=== PATIENT | female | born 1985 | race Caucasian/White ===

== ENCOUNTER 2017-07-27 05:31 | Emergency (ER) | payer BC ==
[~2017-07-27 05:31] MED LIST: DEXT15TA PO; FLUT1SPR9; PROT40TA PO; ZOFR4TAB3 PO
--- NOTE | 2017-07-27 07:04 | PD ---
HPI Chief Complaint Contractions Travel History International Travel<30 Days: No Contact w/Intl Traveler<30Days: No Known Affected Area: No History of Present Illness HPI 32y/o , IUP at 39.4 care complicated by her history of being a "[place] baby" with DNA mutations, bone spurs, narcolepsy, scoliosis The patient reports complaining of the onset of painful contractions at 3am. She reports these have been about every 4-5 minutes but have decreased in frequency and increased in intensity. There are no aggravating or alleviating factors and no attempted treatments. She denies any LOF or VB. She reports good FM. She has no other OB complaints at this time. Weeks Gestation: 39 Para: 0 : 1 History Past Medical History Narrative Medical [place] baby Narcolepsy Scoliosis DNA mutations Bone spurs Obstetric History Obstetric History Denies STDs or abnormal PAPs Past Surgical History Narrative Surgical Rhinoplasty for deviated septum Ovarian cystectomy Family History Narrative Family History HTN Social History Alcohol Use: No Tobacco Use: No Substance Abuse: No Allergies-Medications (Allergen,Severity, Reaction): Coded Allergies: fluoxetine (Unverified Allergy, Severe, 10/29/16) SEIZURE tramadol (Unverified Allergy, Unknown, 10/29/16) SEIZURE *MDRO Multi-Drug Resistant Organism (Verified Adverse Reaction, Unknown, 02/14/15) ESBL (urine) 01/2015 Home Meds Active Scripts Fluticasone Propionate (Nasal) (Flonase Allergy Relief Ch) 50 Mcg/Act Spr, 1 APPLIC NA BID, #1 Prov:Nelly Cho MD 03/07/15 Ondansetron (Zofran ODT) 4 Mg Tab, 4 MG PO Q4-6H for Nausea for 10 Days, TAB 0 Refills Prov:Elieser Elmore MD 02/15/15 Pantoprazole Sodium (Protonix) 40 Mg Tabdr, 40 MG PO DAILY for abdominal pain for 30 Days, TAB 1 Refill Prov:Elieser Elmore MD 02/15/15 Reported Medications Adderall 15 mg (Adderall 15 mg) 15 Mg Tab, 15 MG PO TID, TAB 03/07/15 Review of Systems Except as stated in HPI: all other systems reviewed are Neg Physical Exam Narrative GENERAL: Well-nourished, well-developed patient. SKIN: Warm and dry. HEAD: Normocephalic and atraumatic. EYES: No scleral icterus. No injection or drainage. ENT: No nasal drainage noted. Mucous membranes pink. Airway patent. NECK: Supple, trachea midline. No JVD. CARDIOVASCULAR: Regular rate and rhythm without murmurs, gallops, or rubs. RESPIRATORY: Breath sounds equal bilaterally. No accessory muscle use. BREASTS: deferred ABDOMEN/GI: Abdomen soft, non-tender, bowel sounds present, no rebound, no guarding Gravid GENITOURINARY: External Genitalia: intact and normal in appearance, Normal BUS. Physiologic discharge, no cervical or vaginal masses noted, grossly normal rugae. SVE 1/ thick/high and unchanged in 1h. FHT's: heart tones are in the 120s with moderate intermediate card tender variability, good accelerations, and no decelerations noted. This is a category 1 heart rate tracing and reactive NST. EXTREMITIES: No cyanosis or edema. BACK: Nontender without obvious deformity. NEUROLOGICAL: Awake and alert. Motor and sensory grossly within normal limits. Normal speech. Psychiatric: grossly normal memory, affect Musculoskeletal: grossly normal ROM, gait, muscle strength MDM Plan Assessment/Plan: 1. IUP at 39.4 2. No evidence of active labor, may be prodromal labor. Cervical examination unchanged over observation period and patient does not appear significantly uncomfortable. Strict labor precautions given. Discussed with Dr. Baird who was in agreement with discharge home. 3. [place] baby with DNA mutations 4. wellbeing: reassuring testing with reactive NST and category 1 heart rate tracing. [facility] daily 5. Scoliosis 6. Narcolepsy 7. Bone spurs 8. F/U with primary OB in 2-3d or as scheduled, sooner if needed Diagnosis Diagnosis: Primary Impression: 39 weeks gestation of Additional Impression: False labor at or after 37 completed weeks of gestation Disposition: 01 DISCHARGE HOME Condition: Kiana Cardona MD July 27, 2017 07:04
== END 2017-07-27 07:31 | disposition home or self-care (01) ==
LOC: HOBED 05:31
DX: O47.1 False labor at or after 37 completed weeks of gestation (principal); Z3A.39 39 weeks gestation of pregnancy
CPT/HCPCS: 59025

== ENCOUNTER 2017-08-01 11:05 | Emergency (ER) | payer BC ==
--- NOTE | 2017-08-01 11:58 | PD ---
HPI Chief Complaint contractions Date Seen: August 01, 2017 Time Seen: 11:55 Travel History International Travel<30 Days: No Contact w/Intl Traveler<30Days: No Known Affected Area: No History of Present Illness HPI 32-year-old who is at 40 weeks 2 days comes in due to loss of a mucous plug and some mild contractions that have since resolved. Patient is due to come in at 5 PM tonight for ripening treatment of her cervix before induction. Patient denies any vaginal discharge or bleeding and states she has had normal movement. The last cervical check was 1 cm. Weeks Gestation: 40 Para: 0 : 1 History Past Medical History Medical History: Denies Significant Hx Past Surgical History Surgical History: No Previous Surgery Family History Family History: Negative Social History Alcohol Use: No Tobacco Use: No Substance Abuse: No Allergies-Medications (Allergen,Severity, Reaction): Coded Allergies: fluoxetine (Unverified Allergy, Severe, 10/29/16) SEIZURE tramadol (Unverified Allergy, Unknown, 10/29/16) SEIZURE *MDRO Multi-Drug Resistant Organism (Verified Adverse Reaction, Unknown, 02/14/15) ESBL (urine) 01/2015 Home Meds Active Scripts Fluticasone Propionate (Nasal) (Flonase Allergy Relief Ch) 50 Mcg/Act Spr, 1 APPLIC NA BID, #1 Prov:Nelly Cho MD 03/07/15 Ondansetron (Zofran ODT) 4 Mg Tab, 4 MG PO Q4-6H for Nausea for 10 Days, TAB 0 Refills Prov:Elieser Elmore MD 02/15/15 Pantoprazole Sodium (Protonix) 40 Mg Tabdr, 40 MG PO DAILY for abdominal pain for 30 Days, TAB 1 Refill Prov:Elieser Elmore MD 02/15/15 Reported Medications Adderall 15 mg (Adderall 15 mg) 15 Mg Tab, 15 MG PO TID, TAB 03/07/15 Review of Systems Except as stated in HPI: all other systems reviewed are Neg Physical Exam Narrative GENERAL: Well-nourished, well-developed patient. SKIN: Warm and dry. HEAD: Normocephalic and atraumatic. EYES: No scleral icterus. No injection or drainage. ENT: No nasal drainage noted. Mucous membranes pink. Airway patent. NECK: Supple, trachea midline. No JVD. CARDIOVASCULAR: Regular rate and rhythm without murmurs, gallops, or rubs. RESPIRATORY: Breath sounds equal bilaterally. No accessory muscle use. ABDOMEN/GI: Abdomen soft, non-tender, bowel sounds present, no rebound, no guarding Gravid to [-39] weeks size Fundal Height: [-] GENITOURINARY: External Genitalia: intact and normal in appearance BUS glands: [Normal-] Cervix: [-1] posterior Dilatation: [-] 1 Effacement: [-] 20 Station: [-] High Presentation: [-] Vertex Membranes: [intact or ruptured] intact Uterine Contractions: [-] Rare, patient has had one contractions since admission FHT's: Category: [-] 1 Baseline: [-] 140 Reactive: [-] Moderate moderate Variability: [-] Moderate Decels: [-] Absent EXTREMITIES: No cyanosis or edema. BACK: Nontender without obvious deformity. No CVA tenderness. NEUROLOGICAL: Awake and alert. Motor and sensory grossly within normal limits. Five out of 5 muscle strength in all muscle groups. Normal speech. [facility] Medical Record Reviewed: Yes Plan 32-year-old at 40 weeks gestation not labor at this time. Due to a crunch on room as we cannot keep her at this time as her induction will not occur until 5 to 6:00 tonight. Patient and her partner have no issue with this and will return home gather things and eat dinner prior to her arrival at 5:55 PM tonight Diagnosis Diagnosis: Primary Impression: 40 weeks gestation of Additional Impression: False labor after 37 completed weeks of gestation Disposition: 01 DISCHARGE HOME Ayanna Arita MD August 01, 2017 11:58
== END 2017-08-01 12:11 | disposition home or self-care (01) ==
LOC: HOBED 11:05
DX: O47.1 False labor at or after 37 completed weeks of gestation (principal); Z3A.40 40 weeks gestation of pregnancy; Z88.8 Allergy status to other drugs, medicaments and biological substances; Z79.899 Other long term (current) drug therapy
CPT/HCPCS: 59025

== ENCOUNTER 2017-08-01 17:03 | Inpatient (IN) | payer BC ==
[~2017-08-01] VITALS: Ht 170.2 cm; Wt 93.0 kg
--- NOTE | 2017-08-01 17:11 | MH ---
cc: Savage Baird MD DATE OF ADMISSION: 08/01/2017 ADMISSION DIAGNOSIS: at 40-41 weeks. HISTORY OF PRESENT ILLNESS: The patient is a 32-year-old white female, para 0, with an EDC of 07/31/2017 by early ultrasound. Her course is benign. She is now admitted for induction of labor per request with a prolonged latent phase. PAST MEDICAL/SURGICAL HISTORY: In 2006 had surgery for deviated septum, 2006 tonsils removed, 10/2016 had bilateral dermoids removed laparoscopically. MEDICATIONS: Vitamins, Ritalin, Zoloft, and iron. MEDICAL ILLNESSES: History of narcolepsy and depression. 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 Alcohol, tobacco and drugs are none. FAMILY HISTORY: Noncontributory. PHYSICAL EXAMINATION: GENERAL: Well-developed white female. VITAL SIGNS: Stable. HEENT: Normal. CHEST: Clear. HEART: Regular rate. BREASTS: Symmetrical. ABDOMEN: Gravid. EFW 4000 grams. Cervix is fingertip and thick, vertex intact -3. EXTREMITIES: Normal. ASSESSMENT: As above. PLAN: She is now admitted for Cervidil and Pitocin induction per patient request. Risk, benefits, complications including infection, injury, bleeding, failure and were explained and accepted. MD MEGA Gibbs/ , 04:38 PM , 05:[address] [facility]
[2017-08-01] MEDS ORDERED: MINERAL OIL 10 ML VIAL TOPICAL PRN (18:45)
[2017-08-01] MEDS ORDERED: OXYTOCIN 30 UNITS 500ML PREMIX IV ONE (18:45)
[2017-08-01] MEDS ORDERED: LIDOCAINE HCL 1% 50 ML VIAL INFIL PRN (18:45)
[2017-08-01 18:46] LABS: BILIRUBIN, URINE NEG (NEG); BLOOD, URINE NEG (NEG); GLUCOSE,URINE NEG (NEG); KETONE, URINE NEG (NEG); NITRITE,URINE NEG (NEG); PH, URINE 6.5 (5.0-8.5); SQUAMOUS EPITHELIAL CELL URINE <1 /hpf (0-5); URINE COLOR LIGHT-YELLOW (YELLW/STRAW); URINE LEUKOCYTE ESTERASE TRACE (NEG)
[2017-08-01 18:47] LABS: AUTOMATED NEUTROPHIL # 7.9 TH/MM3 (1.8-7.7); BASOPHIL % 0.2 % (0.0-2.0); EOSINOPHIL # 0.1 TH/MM3 (0-0.4); EOSINOPHIL % 0.6 % (0.0-4.0); HEMOGLOBIN 12.3 GM/DL (11.6-15.3); LYMPH % 11.9 % (9.0-44.0); LYMPHOCYTE # 1.2 TH/MM3 (1.0-4.8); MEAN CELL VOLUME 88.6 FL (80.0-100.0); MEAN CORPUSCULAR HEMOGLOBIN 30.2 PG (27.0-34.0); MEAN CORPUSCULAR HGB CONC 34.1 % (32.0-36.0); MEAN PLATELET VOLUME 9.3 FL (7.0-11.0); MONO % 5.6 % (0.0-8.0); MONOCYTE # 0.5 TH/MM3 (0-0.9); NEUT % 81.7 % (16.0-70.0); PLATELET COUNT 191 TH/MM3 (150-450); RED BLOOD COUNT 4.06 MIL/MM3 (4.00-5.30); RED CELL DISTRIBUTION WIDTH 14.3 % (11.6-17.2); WHITE BLOOD COUNT 9.7 TH/MM3 (4.0-11.0)
[2017-08-01] MEDS ORDERED: LACTATED RINGER'S 1000 ML BOLUS IV PRN (19:00)
[2017-08-01] MEDS: LACTATED RINGER'S 1000 ML IV SCH (19:00)
[2017-08-01] MEDS ORDERED: NS 1000 ML OTHER PRN (19:00)
[2017-08-01] MEDS ORDERED: NS 500 ML BOLUS IV PRN (19:00)
[2017-08-01] MEDS ORDERED: NS 1000 ML IV PRN (19:00)
[2017-08-01] MEDS ORDERED: DINOPROSTONE 10 MG INSERT-LEAVE FOR 12 HOURS VAGINAL ONE (19:00)
[2017-08-01] MEDS ORDERED: LIDOCAINE HCL 1% 50 ML VIAL I-DERMAL PRN (19:00)
[2017-08-01] MEDS ORDERED: CITRIC ACID-SODIUM CITRATE LIQ 30 ML UDC PO SCH (19:00)
[2017-08-01 19:56] VITALS: RESP 18
[2017-08-01 19:57] VITALS: BP 139/84; PULSE 66
[2017-08-01 23:39] VITALS: RESP 20
[2017-08-01 23:42] VITALS: BP 136/81; PULSE 71
[2017-08-01 23:53] VITALS: TEMP 97.5
[2017-08-02] VITALS (55 sets, daily range): BP systolic 107–161; BP diastolic 44–102; PULSE 65–107; RESP 16–20; TEMP 97.6–98.4; O2SAT 97
[2017-08-02] MEDS ORDERED: ZOLPIDEM TARTRATE 5 MG TAB PO PRN ×2 (00:15→08:45)
[2017-08-02] MEDS ORDERED: fentaNYL 2MCG-BUPIV 0.125% INJ 100 ML ONE (02:33)
[2017-08-02] MEDS ORDERED: BUPIVACAINE HCL PF 0.25% 10 ML VIAL ONE ×2 (02:49→07:44)
[2017-08-02] MEDS ORDERED: ePHEDrine/NS 25 MG/5 ML SYRINGE ONE (02:50)
[2017-08-02] MEDS: LACTATED RINGER'S 1000 ML IV SCH (03:00)
[2017-08-02] MEDS ORDERED: NO SYSTEM NARCOTICS PRN (04:45)
[2017-08-02] MEDS ORDERED: DO NOT ADMINISTER ANTICOAGULANTS PRN (04:45)
[2017-08-02] MEDS ORDERED: fentaNYL 2MCG-BUPIV 0.125% 100 ML EPIDURAL PRN (04:45)
[2017-08-02] MEDS: ePHEDrine/NS 25 MG/5 ML SYRINGE IV PUSH PRN ×2 (06:15→06:16)
[2017-08-02] MEDS ORDERED: OXYTOCIN 30 UNITS-500ML PREMIX 500 ML ONE (07:57)
[2017-08-02] MEDS ORDERED: OXYTOCIN 30 UNITS-500ML PREMIX 500 ML IV SCH (08:45)
[2017-08-02] MEDS ORDERED: BENZOCAINE 20% TOPICAL SPRAY 60 ML CAN TOPICAL PRN (08:45)
[2017-08-02] MEDS ORDERED: ACETAMINOPHEN 325 MG TAB PO PRN (08:45)
[2017-08-02] MEDS ORDERED: oxyCODONE/ACETAMINOPHEN 5 MG/325 MG TAB PO PRN (08:45)
[2017-08-02] MEDS ORDERED: WITCH HAZEL 50%/GLYCERIN 12.5% 40 PAD JAR TOPICAL PRN (08:45)
[2017-08-02] MEDS ORDERED: SODIUM CHLORIDE 0.9% FLUSH 10 ML FLUSH IV FLUSH PRN (08:45)
[2017-08-02] MEDS ORDERED: KETOROLAC TROMETHAMINE 30 MG/ML (IVP) VIAL IV PUSH ONE (08:45)
[2017-08-02] MEDS ORDERED: ONDANSETRON ODT 4 MG TAB PO PRN (08:45)
[2017-08-02] MEDS ORDERED: DOCUSATE SODIUM 50 MG/SENNA 8.6 MG TAB PO PRN (08:45)
[2017-08-02] MEDS ORDERED: ALUMINUM/MAGNESIUM/SIMETH 30 ML CUP PO PRN (08:45)
[2017-08-02] MEDS ORDERED: SODIUM CHLORIDE 0.9% FLUSH 10 ML FLUSH IV FLUSH SCH (09:00)
[2017-08-02] MEDS ORDERED: ONDANSETRON HCL 4 MG/2 ML VIAL ONE (09:46)
[2017-08-02] MEDS: ONDANSETRON HCL 4 MG/2 ML VIAL IV PUSH PRN ×2 (09:49→20:45)
[2017-08-02] MEDS: oxyCODONE/ACETAMINOPHEN 5 MG/325 MG TAB PO PRN ×3 (12:38→21:00)
[2017-08-02] MEDS ORDERED: METHYLPHENIDATE HCL 5 MG TAB PO SCH (15:00)
[2017-08-02] MEDS ORDERED: DIPHTH/TETANUS/ACEL PERTUSSIS (BOOSTER) 0.5 ML VIAL/PFS IM ONE (16:00)
[2017-08-02] MEDS ORDERED: MEASLES, MUMPS, RUBELLA VACCINE 0.5 ML VIAL SQ ONE (16:00)
[2017-08-02] MEDS: IBUPROFEN 800 MG TAB PO PRN (17:16)
[2017-08-03] MEDS: oxyCODONE/ACETAMINOPHEN 5 MG/325 MG TAB PO PRN ×4 (01:20→14:12)
[2017-08-03] MEDS: IBUPROFEN 800 MG TAB PO PRN ×2 (04:30→13:02)
[2017-08-03 08:43] LABS: AUTOMATED NEUTROPHIL # 11.5 TH/MM3 (1.8-7.7); BASOPHIL % 0.3 % (0.0-2.0); EOSINOPHIL # 0.1 TH/MM3 (0-0.4); EOSINOPHIL % 0.7 % (0.0-4.0); HEMATOCRIT 31.9 % (35.0-46.0); HEMOGLOBIN 10.8 GM/DL (11.6-15.3); LYMPH % 11.2 % (9.0-44.0); LYMPHOCYTE # 1.5 TH/MM3 (1.0-4.8); MEAN CELL VOLUME 88.5 FL (80.0-100.0); MEAN CORPUSCULAR HEMOGLOBIN 29.8 PG (27.0-34.0); MEAN CORPUSCULAR HGB CONC 33.7 % (32.0-36.0); MEAN PLATELET VOLUME 9.2 FL (7.0-11.0); MONO % 4.5 % (0.0-8.0); MONOCYTE # 0.6 TH/MM3 (0-0.9); NEUT % 83.3 % (16.0-70.0); PLATELET COUNT 162 TH/MM3 (150-450); RED BLOOD COUNT 3.61 MIL/MM3 (4.00-5.30); RED CELL DISTRIBUTION WIDTH 14.4 % (11.6-17.2); WHITE BLOOD COUNT 13.8 TH/MM3 (4.0-11.0)
[2017-08-03] MEDS ORDERED: *ONDANSETRON 4 MG VIAL PERIprocedural Use ONLY ONE (11:23)
[2017-08-03] MEDS ORDERED: PSEUDOEPHEDRINE HCL 30 MG TAB PO ONE ×2 (14:00→14:15)
[2017-08-03] MEDS ORDERED: ACETAMINOPHEN 1000 MG/100 ML 100 ML IV SCH (14:00)
[2017-08-03] MEDS ORDERED: KETOROLAC TROMETHAMINE 30 MG/ML (IVP) VIAL IV PUSH SCH (14:00)
== END 2017-08-03 15:45 | disposition home or self-care (01) | DRG 775 ==
LOC: H2EA 17:03 → H1EA 08-02 10:56
PROVIDERS: ADMIT Obstetrics & Gynecology; ATTEND Obstetrics & Gynecology
PROC: 3E0P7VZ Introduction of Hormone into Female Reproductive, Via Natural or Artificial Opening (ICD-10-PCS; principal; 2017-08-01)
PROC: 10E0XZZ Delivery of Products of Conception, External Approach (ICD-10-PCS; 2017-08-02)
PROC: 00HU33Z Insertion of Infusion Device into Spinal Canal, Percutaneous Approach (ICD-10-PCS; 2017-08-02)
PROC: 3E0R3BZ Introduction of Anesthetic Agent into Spinal Canal, Percutaneous Approach (ICD-10-PCS; 2017-08-02)
DX: O48.0 Post-term pregnancy (principal); O47.1 False labor at or after 37 completed weeks of gestation; O63.0 Prolonged first stage (of labor); Z37.0 Single live birth; Z23 Encounter for immunization; Z3A.41 41 weeks gestation of pregnancy; Z88.8 Allergy status to other drugs, medicaments and biological substances; Z79.899 Other long term (current) drug therapy
CPT/HCPCS: 59025; 62273; 80307; 81001; 85025; 86900; 86901; 90715; J1885; J2405; J2590; J3010; J7120